=== PATIENT | female | born 1995 | race Caucasian/White ===

== ENCOUNTER 2018-05-28 08:00 | Inpatient (IN) | payer MEDICAID ==
[~2018-05-28] VITALS: Ht 157.5 cm; Wt 66.2 kg
[~2018-05-28 08:00] MED LIST: CEPH-443 PO
[2018-05-28] MEDS ORDERED: LIDOCAINE 1% (MPF) 30 ML INJ INJ PRN (10:30)
[2018-05-28] MEDS ORDERED: OXYTOCIN 30 UNITS/LR 500 ML IV PRN (10:30)
[2018-05-28] MEDS ORDERED: CARBOPROST 250 MCG INJ IM PRN (10:30)
[2018-05-28] MEDS ORDERED: OXYTOCIN 30 UNITS/LR 500 ML IV SCH ×2 (10:30)
[2018-05-28] MEDS ORDERED: METHYLERGONOVINE 0.2 MG INJ IM PRN (10:30)
[2018-05-28] MEDS ORDERED: BUTORPHANOL 2 MG INJ IV PRN (10:30)
[2018-05-28] MEDS ORDERED: MISOPROSTOL 200 MCG TAB PR PRN (10:30)
[2018-05-28] MEDS ORDERED: IBUPROFEN 600 MG TAB PO PRN (10:30)
[2018-05-28 10:41] VITALS: Ht 157.5 cm; Wt 66.2 kg
[2018-05-28 10:48] VITALS: BP 109/58
[2018-05-28] MEDS: LACTATED RINGER'S 1,000 ML IV SCH ×3 (12:15→17:55)
[2018-05-28] MEDS: MISOPROSTOL 50 MCG CAPSULE PO PRN ×3 (12:16→20:18)
--- NOTE | 2018-05-28 14:46 | HP ---
Date/Time of Note Date/Time of Note DATE: 05/28/18 TIME: 14:44 OB - History Hx of Present Free Text/Dictation 23-year-old female 1 para 0 at 40 weeks and 1 day gestation admitted for induction of labor Last Menstrual Period: Aug 20, 2017 Estimated Due Date: May 27, 2018 : 1 Para: 0 Care: Good Care Ultrasounds: Normal mid trimester US Obstetrical Complications: None Medical Complications: None Past Family/Social History * Past Medical, Surgical, Family and Obstetric Histories reviewed from chart. Blood Type: O+ Rubella: immune RPR/VDRL: Negative GBS Status: Negative HBsAG: Negative OB Admission Exam Vital Signs Vital Signs Vital Signs Date Temp Pulse Resp B/P (MAP) Pulse Ox O2 O2 Flow FiO2 Time Delivery Rate 05/28/18 98.4 77 20 109/58 99 10:48 (75) Physical Exam HEENT: WNL Heart: Rhythm Normal Lungs: Clear, Equal Abdomen: WNL Extremities: Normal Reflexes: Normal Cervical Dilatation: 2cm Effacement: 50% Station: -3 Membranes: Intact Heart Rate: 140's Accelerations: Accelerations Present Decelerations: No Decelerations Varibility: Marked Contractions on Admission: None Last 72 hours Lab Results CBC & BMP 05/28/18 11:05 OB Assessment/Plan Reason for admission: induction of labor Other Assessment: Term gestation for elective induction of labor Other plan: Pitocin augmentation of labor was started ZEESHAN CARREON MD May 28, 2018 14:46
[2018-05-28 18:28] VITALS: BP 113/79
[2018-05-29] MEDS: MISOPROSTOL 50 MCG CAPSULE PO PRN ×2 (01:08→05:27)
[2018-05-29] MEDS: LACTATED RINGER'S 1,000 ML IV SCH ×4 (01:08→15:13)
[2018-05-29] MEDS ORDERED: OXYTOCIN 30 UNITS/LR 500 ML IV SCH (08:30)
[2018-05-29] MEDS ORDERED: FENTAnyl 2MCG/ML-ROPIV 0.2% 100 ML ONE (12:06)
--- NOTE | 2018-05-29 12:15 | PREAC ---
Date/Time of Note Date/Time of Note DATE: 05/29/18 TIME: 12:13 Anesthesia Eval and Record Evaluation Time Pre-Procedure Interview DATE: 05/29/18 TIME: 12:13 Age 23 Sex female NPO: 8 hrs Preoperative diagnosis Labor Pain Planned procedure Labor Epidural Past Medical History Past Medical History: Includes Heme: Anemia : : (1), Para: (0), Gestational age: (40) Surgery & Anesthesia Issues No known issue Meds Anticoagulation: No Beta Esvin within 24 hr: No Reason Beta Esvin not given: Pt. not on B-Esvin Discontinued Scripts Cephalexin* (Keflex*) 500 Mg Capsule, 500 MG PO QID for 7 Days, CAP Prov:EVERARDO HERMAN PA-C 10/16/17 Current Medications Lactated Ringer's 1,000 ml @ 125 mls/hr Q8H IV Last administered on 05/29/18at 12:06; Admin Dose 125 MLS/HR; Start 05/28/18 at 10:20 Butorphanol Tartrate (Stadol) 2 mg Q2H PRN IV .PAIN; Start 05/28/18 at 10:30 Lidocaine (Xylocaine 1% (Mpf)) 30 ml ONCE PRN INJ .EPISIOTOMY; Start 05/28/18 at 10:30 Oxytocin/Lactated Ringer's 500 ml @ 500 mls/hr ONCE POST IV ; Start 05/28/18 at 10:30 Oxytocin/Lactated Ringer's 500 ml @ 125 mls/hr POST IV ; Start 05/28/18 at 10:30 Ibuprofen (Motrin) 600 mg ONCE PRN PO .PAIN 1-5; Start 05/28/18 at 10:30 Oxytocin/Lactated Ringer's 500 ml @ 0 mls/hr ONCE PRN IV .VAGINAL BLEEDING; Start 05/28/18 at 10:30 Methylergonovine Maleate (Methergine) 0.2 mg ONCE PRN IM .VAGINAL BLEEDING; Start 05/28/18 at 10:30 Carboprost Tromethamine (Hemabate) 250 mcg ONCE PRN IM .VAGINAL BLEEDING; Start 05/28/18 at 10:30 Misoprostol (Cytotec) 1,000 mcg ONCE PRN IL .VAGINAL BLEEDING; Start 05/28/18 at 10:30 Misoprostol (Cytotec 50 Mcg Capsule) 50 mcg Q4H PRN PO CERVICAL RIPENING Last administered on 05/29/18at 05:27; Admin Dose 50 MCG; Start 05/28/18 at 12:00 Oxytocin/Lactated Ringer's 500 ml @ 0 mls/hr FOR INDUCTION IV Last administered on 05/29/18at 10:24; Admin Dose 1 MLS/HR; Start 05/29/18 at 08:30 Meds reviewed: Yes Allergies Coded Allergies: No Known Allergy (Verified , 12/03/10) Allergies Reviewed: Yes Labs/Studies Labs Reviewed: Reviewed by anesthesiologist Result Diagram: 05/28/18 1105 test: N/A Studies: ECG (n/a), CXR (n/a) Pre-procedure Exam Last vitals Vital Signs Date Temp Pulse Resp B/P (MAP) Pulse Ox O2 O2 Flow FiO2 Time Delivery Rate 05/28/18 98.2 113/79 Room Air 18:28 (90) 05/28/18 77 20 99 10:48 Airway: Adequate mouth opening, Adequate thyromental dist Mallampati: Mallampati II Teeth: Normal Lung: Normal Heart: Normal ASA Physical Status ASA physical status: 2 Emergency: None Planned Anesthetic Neuraxial: Epidural Planned Pain Management Epidural Pre-operative Attestations Prior to commencing anesthesia and surgery, the patient was re-evaluated, there was verification of: *The patient's identity *The results of appropriate recent lab work and preoperative vital signs *The above evaluation not changing prior to induction *Anesthetic plan, risk benefits, alternative and complications discussed with patient/family; questions answered; patient/family understands, accepts and wishes to proceed. MIRI MOCK MD May 29, 2018 12:15
--- NOTE | 2018-05-29 12:17 | PAC ---
Date/Time of Note Date/Time of Note DATE: 05/29/18 TIME: 12:17 Post-Anesthesia Notes Post-Anesthesia Note Last documented vital signs Vital Signs Date Temp Pulse Resp B/P (MAP) Pulse Ox O2 O2 Flow FiO2 Time Delivery Rate 05/29/18 98.2 76 16 113/79 99 Room Air 12:15 (90) 05/28/18 77 20 99 10:48 Activity: WNL Respiratory function: WNL Cardiovascular function: WNL Mental status: Baseline Pain reasonably controlled: Yes Hydration appropriate: Yes Nausea/Vomiting absent: Yes MIRI MOCK MD May 29, 2018 12:17
[2018-05-29] MEDS ORDERED: FENTAnyl 2MCG/ML-ROPIV 0.2% 100 ML BAG EPI SCH (12:30)
[2018-05-29] MEDS ORDERED: NALOXONE (0.4 MG/ML) INJ IV PRN (12:30)
[2018-05-29] MEDS ORDERED: MINERAL OIL LIGHT 10 ML VIAL TOP ONE (15:00)
[2018-05-29] MEDS ORDERED: KETOROLAC 30 MG INJ IV STA (19:41)
--- NOTE | 2018-05-29 19:41 | LDN ---
Date/Time of Note Date/Time of Note DATE: 05/29/18 TIME: 19:38 Delivery Summary Vacuum assisted delivery of a viable over midline episiotomy Weeks of Gestation 40 weeks plus Assisted Vaginal Delivery: Vacuum (Vacuum extraction was performed because of a persistent variable decelerations of heart tones in at times bradycardic episodes) Placenta Delivered: Spontaneously, Intact & Complete Meconium: none Episiotomy: Yes Indication for episiotomy Deep variable deceleration of heart tones on vacuum extraction Laceration repair: Episiotomy was repaired in layers using 2-0 Vicryl in deeper layers 2-0 chromic and superficial layer Anesthesia type: Epidural Estimated blood loss: 300 Sponge & Needle done & correct: Yes All needle counts correct: Yes Any foreign bodies felt in the: No Infant Delivery Information Sex Sex: male Apgars 1 Minute: 8 5 Minute: 9 Suctioning Nose & mouth suctioned at denise: Yes Delee suction performed: No Umbilical Cord Umbilical cord with: 3 Vessels Cord presentations: no nuchal cord Cord Blood was obtained: Yes Mother & Baby Disposition Disposition Mom & Baby to Maternity; Good: Yes (Mother and baby were recovering in good condition) Mom transferred to: Other (Maternity) Baby to NICU: No ZEESHAN CARREON MD May 29, 2018 19:41
[2018-05-29] MEDS ORDERED: CEFAZOLIN 2 GM/50 ML (PMX) 50 ML IVPB ONE (20:00)
[2018-05-29 21:05] VITALS: BP 111/59; PULSE 90; RESP 18
[2018-05-29] MEDS ORDERED: DIBUCAINE 1% 30 GM OINT TOP PRN (21:30)
[2018-05-29] MEDS ORDERED: WITCH HAZEL/GLYCERIN PAD PR PRN (21:30)
[2018-05-29] MEDS ORDERED: HYDROCODONE/APAP (5/325) TAB PO PRN ×2 (21:30)
[2018-05-29] MEDS ORDERED: OXYTOCIN 30 UNITS/LR 500 ML IV PRN (21:30)
[2018-05-29] MEDS ORDERED: LANOLIN HPA 1 PKT TOP PRN (21:30)
[2018-05-29] MEDS ORDERED: ZOLPIDEM 5 MG TAB PO PRN (21:30)
[2018-05-29] MEDS ORDERED: CARBOPROST 250 MCG INJ IM PRN (21:30)
[2018-05-29] MEDS ORDERED: METHYLERGONOVINE 0.2 MG INJ IM PRN (21:30)
[2018-05-29] MEDS ORDERED: MISOPROSTOL 200 MCG TAB PR PRN (21:30)
[2018-05-29] MEDS ORDERED: BENZOCAINE 20% 56 ML SPRAY TOP PRN (21:30)
[2018-05-29 21:35] VITALS: BP 106/56; PULSE 92; RESP 18
[2018-05-29] MEDS: CEPHALEXIN 500 MG CAP PO SCH (23:55)
[2018-05-29] MEDS: IBUPROFEN 600 MG TAB PO SCH (23:56)
[2018-05-29] MEDS: LACTATED RINGER'S 1,000 ML IV* SCH (23:57)
[2018-05-30] VITALS: BP 96/53; PULSE 96; RESP 18
[2018-05-30 04:30] VITALS: BP 98/52; PULSE 79; RESP 18
[2018-05-30] MEDS: LACTATED RINGER'S 1,000 ML IV* SCH (05:28)
[2018-05-30] MEDS: IBUPROFEN 600 MG TAB PO SCH ×3 (06:29→18:07)
[2018-05-30] MEDS: CEPHALEXIN 500 MG CAP PO SCH ×3 (06:29→18:07)
[2018-05-30 08:00] VITALS: BP 94/60; PULSE 91; RESP 18
[2018-05-30] MEDS: SENNA/DOCUSATE NA (8.6MG/50MG) TAB PO SCH ×2 (09:00→20:46)
[2018-05-30] MEDS: MAGNESIUM HYDROXIDE 30ML CUP PO SCH ×2 (09:49→20:46)
[2018-05-30 12:00] VITALS: BP 108/64; PULSE 81; RESP 18
--- NOTE | 2018-05-30 14:04 | DS ---
Date/Time of Note Date/Time of Note Home today or next day DATE: 05/30/18 TIME: 14:02 Obstetrical Discharge Record Final Diagnosis Final Diagnosis: Term delivered Other Final Diagnosis Status post vaginal delivery Vaginal Delivery Obstetrical Delivery: Episiotomy, Repaired, Vacuum Extraction Complications Augmentation: Yes Induction: Yes Condition on Discharge Physical Assessment Last Vitals: See nurse's notes Voiding: Yes Bowel Movement: Yes Breast: Soft, non-tender, Filling Fundus: Firm Abdomen and Incision: Abdomen is soft with bowel sounds Fundus is firm below bellybutton Episiotomy: Episiotomy is healing well and perineum appears clean Calf Tenderness: No Patient Condition: Good ZEESHAN CARREON MD May 30, 2018 14:03
[2018-05-30] MEDS ORDERED: IBUP-1542 PO (14:06)
--- NOTE | 2018-05-30 14:06 | PD.PPDC ---
[employer] Discharge Instruction Provider Information Physician Information 23-year-old female had vaginal delivery Diagnosis [id number] Final Diagnosis: [id number] Status post vaginal delivery Condition [id number] Patient Condition: [id number] Good Diet [id number] Diet: Pbgfx2r Resume Regular Diet Activity/Restrictions [id number] Activity: Memnm0p Normal Activity May Shower [id number] Restrictions: [id number] Nothing in the Vagina [id number] Return to Work or School: [id number] Jul 16, 2018 Follow-up Follow-up with Physician: 2, Week/Weeks (In clinic) Return to clinic for [id number] OB Instructions: [id number] Breast Tenderness Depression Comment: Pelvic rest for 6 weeks ZEESHAN CARREON MD May 30, 2018 14:06
[2018-05-30 15:46] VITALS: BP 104/64; PULSE 76; RESP 18
[2018-05-30 19:45] VITALS: BP 109/60; PULSE 84; RESP 18
[2018-05-31] MEDS: IBUPROFEN 600 MG TAB PO SCH ×3 (00:07→12:10)
[2018-05-31] MEDS: CEPHALEXIN 500 MG CAP PO SCH ×3 (00:07→12:10)
[2018-05-31 04:00] VITALS: BP 121/65; PULSE 90; RESP 19
[2018-05-31 08:10] VITALS: BP 116/61; PULSE 76; RESP 18
[2018-05-31] MEDS ORDERED: VARICELLA VACCINE LIVE/PF 1,350 UNIT/0.5 ML ML SC* ONE (09:00)
[2018-05-31] MEDS ORDERED: MEASLES,MUMPS,RUBELLA VACCINE INJ SC* ONE (09:00)
[2018-05-31] MEDS ORDERED: DIPHTH/TET/ACEL PERTUSS (ADULT) 0.5 ML VIAL IM* ONE (09:00)
[2018-05-31] MEDS: MAGNESIUM HYDROXIDE 30ML CUP PO SCH (09:02)
[2018-05-31] MEDS: SENNA/DOCUSATE NA (8.6MG/50MG) TAB PO SCH (09:02)
--- NOTE | 2018-06-01 15:16 | DELSUM ---
Delivery Summary A-C Datetime Report Generated by CPN: 06/01/2018 15:16 DELIVERY PERSONNEL Print Shop Assistant: Duvo, Alexa MATERNAL INFORMATION Delivery Anesthesia: Local; Epidural Medications in Delivery: pitocin Delivery QBL (ml): 300 Placenta Cultured: Yes Maternal Complications: Other RN Comments: post dates induction LABOR SUMMARY EDC: 05/27/2018 00:00 No. Babies in Womb: 1 Attempted: No Labor Anesthesia: Epidural LABOR INFORMATION Reason for Induction: Postterm Onset of Labor: 05/29/2018 08:07 Complete Dilatation: 05/29/2018 16:23 Cervical Ripening Agents: Cytotec @ Oxytocin: Induction Group B Beta Strep: Negative Antibiotics # of Doses: 0 Steroids Given: None Reason Steroids Not Administered: Not Applicable MEMBRANES Membranes Rupture Method: Artificial Rupture of Membranes: 05/29/2018 16:23 Length of Rupture (hr): 2.90 Amniotic Fluid Color: Clear Amniotic Fluid Amount: Moderate Amniotic Fluid Odor: None STAGES OF LABOR Stage 1 hr: 8 Stage 1 min: 16 Stage 2 hr: 2 Stage 2 min: 54 Stage 3 hr: 0 Stage 3 min: 3 Total Time in Labor hr: 11 Total Time in Labor min: 13 VAGINAL DELIVERY Episiotomy: Median Laceration Extension: N/A Laceration Type: None Laceration Repair: Yes Initial Vag Sponge Count: 10 Final Vag Sponge Count: 10 Initial Vag Sharps Count: 1 Final Vag Sharps Count: 4 Sponge Count Correct: Yes; Vaginal Sweep Performed Sharps Count Correct: Yes BABY A INFORMATION Infant Delivery Date/Time: 05/29/2018 19:17 Method of Delivery: Vaginal Born in Route : No : N/A Forceps: N/A Vacuum Extraction: Successful Shoulder Dystocia : No ASSISTED DELIVERY BABY A Indication for Assisted Delivery: bradycardia Catheter Prior to Procedure: Yes Station Vacuum/Forcep Apply: +2 Position Vacuum/Forcep Apply: Left Occipital Anterior Vacuum Number of Pulls: 4 Vacuum Number of PopOffs: 3 Reduce Pressure btwn Ctx: Yes Vacuum Business Performance Manager: kiwi Total Time Vacuum Applied: 2 minutes total Vacuum/Forceps Comment: md pressure controlled SHOULDER DYSTOCIA BABY A Delivery Date/Time: 05/29/2018 19:17 PRESENTATION/POSITION BABY A Presentation: Cephalic Cephalic Presentation: Vertex Vertex Position: Left Occipital Anterior Breech Presentation: N/A PLACENTA INFORMATION BABY A Placenta Delivery Time : 05/29/2018 19:20 Placenta Method of Delivery: Spontaneous Placenta Status: Delivered SCORES BABY A Heart Rate 1 min: >100 bpm Resp Effort 1 min: Good Cry Reflex Irritability 1 min: Cough/Sneeze/Pulls Away Muscle Tone 1 min: Active Motion Color 1 min: Blue/Pale Resuscitation Effort 1 min: Tactile Stimulation SCORE 1 MIN: 8 Heart Rate 5 min: >100 bpm Resp Effort 5 min: Good Cry Reflex Irritability 5 min: Cough/Sneeze/Pulls Away Muscle Tone 5 min: Active Motion Color 5 min: Body [place], Extremit Blue Resuscitation Effort 5 min: Tactile Stimulation SCORE 5 MIN: 9 INFORMATION BABY A Gestational Age at Delivery: 40.2 Gestational Status: Full Term- 39- 40.6 Weeks Infant Outcome : Liveborn Infant Condition : Stable Sex: Male IDENTIFICATION/MEDS BABY A ID Band Number: [id number] ID Band Location: Right Leg; Left Arm Sensor Applied: Yes Sensor Number: [id number] Sensor Location : Cord Clamp Vitamin K Given : Not Given Erythromycin Given: Not Given WEIGHT/LENGTH BABY A Infant Birthweight (gm): 3320 Infant Weight (lb): 7 Weight (oz): 5 Length (in): 20.00 Length (cm): 50.80 CORD INFORMATION BABY A No. Cord Vessels: 3 Nuchal Cord : N/A Cord Blood Taken: No Suction: Mouth; Nose ASSESSMENT BABY A Complications: Decreased Variability; Extended Bradycardi; Multiple Variable Decels Complications- Other: post dates Physical Findings at Delivery: Caput Succedaneum; Molding of the Head Physical Findings- Other: SCALP INTACT. Infant Respirations: Appears Normal Rail Transit Operator/ALS Called : Yes Infant Care By: aden dunn rn Transferred To: Remains with Mother
== END 2018-05-31 13:00 | disposition home or self-care (01) | DRG 807 ==
LOC: MERGE 10:00 → L-D 10:00 → PP1 05-29 21:03
PROVIDERS: ADMIT Obstetrics & Gynecology; ATTEND Obstetrics & Gynecology
PROC: 3E033VJ Introduction of Other Hormone into Peripheral Vein, Percutaneous Approach (ICD-10-PCS; 2018-05-28)
PROC: 10D07Z6 Extraction of Products of Conception, Vacuum, Via Natural or Artificial Opening (ICD-10-PCS; principal; 2018-05-29)
PROC: 0W8NXZZ Division of Female Perineum, External Approach (ICD-10-PCS; 2018-05-29)
DX: O76 Abnormality in fetal heart rate and rhythm complicating labor and delivery (principal); Z37.0 Single live birth; Z3A.40 40 weeks gestation of pregnancy
CPT/HCPCS: 62322; 76815; 85025; 85610; 85730; 86592; 86850; 86900; 86901; 87070; 87340; 88307; 90716; 99464; J0690; J1885; J2210; J2590; J3010; J7120